=== PATIENT | female | born 2000 | race Caucasian/White ===

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

== ENCOUNTER 2022-05-03 16:43 | Emergency (ER) | payer OTHER, MEDICAID, SELFPAY ==
[2022-05-03 16:56] VITALS: BP 156/99; PULSE 109; RESP 20; TEMP 37.1; O2SAT 97; BMI 41.5
--- NOTE | 2022-05-03 17:02 | DI.RAD.S_ITS ---
PROCEDURE: XR KNEE LT 3V INDICATIONS: injury TECHNIQUE: Three views of the knee were acquired. COMPARISON: None. FINDINGS: Bones: There is subtle cortical irregularity along the medial aspect of the medial tibial plateau adjacent to the tibial spine. There is lateral patellar subluxation to a moderate degree. Soft tissues: Moderate suprapatellar joint effusion. No soft tissue abnormalities. IMPRESSION: 1. Lateral patellar subluxation. 2. Slight cortical irregularity adjacent to the tibial spines. 3. Moderate joint effusion implies further internal derangement. 4. Immobilization and MR imaging as an outpatient is recommended for full evaluation of injuries. Dictated by: Alysa Day M.D. on 05/03/2022 at 17:40 Approved by: Alysa Day M.D. on 05/03/2022 at 17:42
--- NOTE | 2022-05-03 19:25 | ED.LOWEXIN ---
HPI - Extremity Injury (Lower) <JACI Spangler - Last Filed: 05/03/22 20:30> General Chief Complaint: Extremity Injury, Lower Stated Complaint: lt knee injury Time Seen by Provider: 05/03/22 19:24 Source: patient and family Mode of arrival: Family Vehicle History of Present Illness HPI Narrative: 21-year-old female, nonsmoker, presents to emergency department with left knee pain. 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 Patient is in obvious discomfort. Patient is here with her mother. Related Data Allergies Allergy/AdvReac Type Severity Reaction Status Date / Time seasonal Allergy Mild sneezing, Uncoded 05/03/22 17:01 runny nose Review of Systems <JACI Spangler - Last Filed: 05/03/22 20:30> Review of Systems Narrative: Narrative: GENERAL: Denies chills, fatigue, fever, sweats. See HPI HEENT: Denies sinus pain, ear pain, sore throat, difficulty swallowing, dizziness. RESPIRATORY: Denies dyspnea, cough, wheezing, sputum. CARDIOVASCULAR: Denies chest pain, palpitations, edema. GASTROINTESTINAL: Denies nausea, vomiting, abdominal pain, diarrhea, constipation. : Denies dysuria, frequency, incontinence, hematuria, urinary retention, flank pain. MSK: Endorses left knee pain. SKIN: Denies rash, skin lesions, or pruritis. NEUROLOGIC: Denies weakness, dizziness, headache, numbness, confusion. PSYCHIATRIC: No concerning psychosocial issues. Patient History <JACI Spangler - Last Filed: 05/03/22 20:30> Social History Smoking Status: Never smoker Smoking Status: Never smoker alcohol intake frequency: 0-2 drinks per day Substance Use Type: does not use Exam <JACI Spangler - Last Filed: 05/03/22 20:30> Narrative Exam Narrative: Exam Narrative: GENERAL: This is a well-nourished, well-developed patient, in no acute distress HEAD: Atraumatic. Normocephalic. MSK: Moves all extremities. Left patella displaced laterally. Neurovascularly intact. NEURO: A&O x 3. SKIN: Warm, dry, no rashes or lesions noted. Initial Vital Signs Initial Vital Signs: Vital Signs Temperature 98.8 F 05/03/22 16:56 Pulse Rate 109 H 05/03/22 16:56 Respiratory Rate 20 05/03/22 16:56 Blood Pressure 156/99 H 05/03/22 16:56 Pulse Oximetry 97 05/03/22 16:56 Oxygen Delivery Method 05/03/22 16:56 Reviewed <Kareem Guido MD - Last Filed: 05/04/22 00:20> Initial Vital Signs Initial Vital Signs: Vital Signs Temperature 98.8 F 05/03/22 16:56 Pulse Rate 109 H 05/03/22 16:56 Respiratory Rate 20 05/03/22 16:56 Blood Pressure 156/99 H 05/03/22 16:56 Pulse Oximetry 97 05/03/22 16:56 Oxygen Delivery Method 05/03/22 16:56 Course <JACI Spangler - Last Filed: 05/03/22 20:30> Orders Ordered: ED Orders 05/03/22 17:02 XR knee LT 3V Stat 05/03/22 20:11 XR knee LT 3V Stat Discontinued Medications Hydromorphone HCl (Hydromorphone 1 Mg Inj) 1 mg IM NOW ONE Stop: 05/03/22 19:30 Last Admin: 05/03/22 19:51 Dose: 1 mg Documented By: MIKI Vital Signs Vital signs: Vital Signs - 8 hr 05/03/22 16:56 05/03/22 20:48 Temperature 98.8 F Pulse Rate 109 H 90 Respiratory Rate 20 12 Blood Pressure 156/99 H 124/78 Pulse Oximetry 97 98 Oxygen Delivery Method Room Air Room Air <Kareem Guido MD - Last Filed: 05/04/22 00:20> Orders Ordered: ED Orders 05/03/22 17:02 XR knee LT 3V Stat 05/03/22 20:11 XR knee LT 3V Stat Discontinued Medications Hydromorphone HCl (Hydromorphone 1 Mg Inj) 1 mg IM NOW ONE Stop: 05/03/22 19:30 Last Admin: 05/03/22 19:51 Dose: 1 mg Documented By: CRUZ Vital Signs Vital signs: Vital Signs - 8 hr 05/03/22 16:56 05/03/22 20:48 Temperature 98.8 F Pulse Rate 109 H 90 Respiratory Rate 20 12 Blood Pressure 156/99 H 124/78 Pulse Oximetry 97 98 Oxygen Delivery Method Room Air Room Air MDM - Extremity Injury (Lower) <JACI Spangler - Last Filed: 05/03/22 20:30> Differential Diagnosis Differential diagnosis: Likely other (Patellar dislocation) Imaging Data Extremity x-ray #1: Radiologist's Impression: [address] [id number] ReportSigned Patient: Herbie Valenzuela [facility]#: [id number]: 2001Acct:[id number]/Sex: 21 / FDate of Service: 05/03/22Loc: EDAccession Number: [id number] Procedure: XR knee LT 3V Ordering Provider: Maranda Lujan D.O. PROCEDURE: XR KNEE LT 3V INDICATIONS: injury TECHNIQUE: Three views of the knee were acquired. COMPARISON: None. FINDINGS: Bones: There is subtle cortical irregularity along the medial aspect of the medial tibial plateau adjacent to the tibial spine. There is lateral patellar subluxation to a moderate degree. Soft tissues: Moderate suprapatellar joint effusion. No soft tissue abnormalities. IMPRESSION: 1. Lateral patellar subluxation. 2. Slight cortical irregularity adjacent to the tibial spines. 3. Moderate joint effusion implies further internal derangement. 4. Immobilization and MR imaging as an outpatient is recommended for full evaluation of injuries. Dictated by: Alysa Day M.D. on 05/03/2022 at 17:40 Approved by: Alysa Day M.D. on 05/03/2022 at 17:42 [facility] Narrative Medical decision making narrative: 21-year-old female presents to the emergency department with left knee pain after injuring it earlier today. Patient was provided with IM Dilaudid. With the assistance Dr. Guido, patella was reduced. Patient tolerated procedure well. Post reduction x-ray shows patella in place. Patient placed in a knee immobilizer and crutches. Discussed plan of care and return precautions with patient, who was agreeable with course of action. <Kareem Guido MD - Last Filed: 05/04/22 00:20> [facility] Narrative Medical decision making narrative: 21-year-old female presents to the emergency department with left knee pain after injuring it earlier today. Patient was provided with IM Dilaudid. With the assistance Dr. Guido, patella was reduced. Traction counter traction with manipulation of the patella. Patient tolerated procedure well. Post reduction x-ray shows patella in place. Patient placed in a knee immobilizer and crutches. Discussed plan of care and return precautions with patient, who was agreeable with course of action. Discharge Plan Departure Patient Disposition: Home Clinical Impression: Acute knee pain Activity Restrictions/Additional Instructions: *You have been diagnosed with a left patellar dislocation. We were able to successfully reduce your left kneecap. We are placing you in a knee immobilizer and giving you crutches. I recommend that you use Tylenol or ibuprofen as needed for discomfort. Please follow-up with orthopedics tomorrow. *What to do: *Please continue to take your regular medications as directed. [ ] New medication prescriptions sent to your pharmacy: [ ] [ ] New medication written as a paper prescription [ x] No new medications given *Please follow up with your primary care provider in 2-3 days, call for an appointment. Let them know you were seen in the Emergency Department and that we ask that you be seen in follow up. We will electronically transmit a record of today's note if your PCP is in our system *If you do not have a primary care provider please contact the [facility] Resource line at [phone]. They will ask some questions about your medical history and help get you set up with a doctor in the community. ? Return to ER if you should have any new, worsening or concerning symptoms, such as worsening pain, severe headache, confusion, chest pain, difficulty breathing, fever greater than 101 F, shaking chills, persistent vomiting to the point that you cannot drink fluids, or other new or worsening symptoms. Referrals: Kofi Ramon MD [Physician] - Ryan Thompson MD [Primary Care Provider] - Visit Report Forms: Patient Portal/API <Kareem Guido MD - Last Filed: 05/04/22 00:20> [facility] Att[facility]: I personally evaluated and examined the patient and agree with the assessment, treatment plan, and disposition of the patient as recorded by the APC.
[2022-05-03] MEDS: HYDROMORPHONE 1 MG INJ IM (19:51)
--- NOTE | 2022-05-03 20:11 | DI.RAD.S_ITS ---
PROCEDURE: XR KNEE LT 3V INDICATIONS: post reduction x-ray TECHNIQUE: 3 views of the knee were acquired. COMPARISON: [facility], , XR KNEE LT 3V, 05/03/2022, 17:12. FINDINGS: Bones: There is mildly decreased but persistent moderate lateral shift and mild lateral tilt of the patella. There is a small curvilinear lucency within the tibial spine medially which may reflect a vascular channel or nondisplaced fracture. No suspicious bony lesions. Soft tissues: There is a moderate joint effusion. No suspicious soft tissue calcifications. IMPRESSION: 1. Interval decreased but persistent moderate lateral shift and mild lateral tilt of the patella. 2. Small curvilinear lucency within the tibial spine medially may reflect a vascular channel or nondisplaced fracture. 3. Moderate joint effusion. Dictated by: Chad Foy M.D. on 05/03/2022 at 20:52 Approved by: Chad Foy M.D. on 05/03/2022 at 20:54
--- NOTE | 2022-05-03 20:47 | PC.NURSE ---
discussed crutch training, declined crutches has them at home
[2022-05-03 20:48] VITALS: BP 124/78; PULSE 90; RESP 12; O2SAT 98
== END 2022-05-03 20:49 | disposition home or self-care (01) ==
PROVIDERS: Emergency Provider Registered Nurse; PCP Family Medicine
DX: M25.562 Pain in left knee (principal); X50.1XXA Overexertion from prolonged static or awkward postures, initial encounter
CPT/HCPCS: 73562; 96372; 99283; 99284; J1170

== ENCOUNTER → 2022-05-16 19:00 | Outpatient (CLI) | payer OTHER, MEDICAID, SELFPAY ==
--- NOTE | 2022-05-16 19:02 | DI.MRI.S_ITS ---
PROCEDURE: MR KNEE LT WO CON INDICATIONS: Lateral subluxation of left patella,initial encou TECHNIQUE: Noncontrast sagittal PD fast spin echo and T2 fast spin echo with fat saturation, sagittal 3-D FLASH with fat saturation; coronal T1 spin echo and PD fast spin echo with fat saturation, and axial PD fast spin echo with fat saturation through the knee. COMPARISON: [facility], CR, XR KNEE LT 3V, 05/03/2022, 20:10. FINDINGS: Image quality: Excellent. Menisci: There is no definite focal medial meniscal tear. Lateral meniscus is intact.. The meniscal root ligaments appear intact. Cruciate ligaments: The anterior and posterior cruciate ligaments appear intact. Medial structures: The medial collateral ligament appears intact. The posterior oblique ligament, semimembranosus tendon insertions, oblique popliteal ligament, and meniscocapsular junction appear intact. Visualized portions of the pes anserinus tendons appear normal. No abnormal bursal fluid. Lateral structures: The lateral collateral ligament, long and short heads of the biceps femoris tendon appear intact. The popliteus tendon appears normal; the popliteofibular ligament appears intact. Iliotibial band appears normal. Anterior structures: The quadriceps and patellar tendons appear intact. Lateral subluxation of patella is noted with attenuated appearance of medial patellar retinaculum at its insertion on medial patella. No femoral trochlear dysplasia or ventral trochlear prominence. Bones and cartilage: Significant marrow edema involving anterolateral periphery of femoral condyle and medial periphery of patella is seen. Low-grade chondromalacia involving medial facet of patella cartilage is also noted. The cartilage of the medial and lateral femorotibial compartments appears normal in thickness. Joint space: There is moderate amount of joint fluid. No Sheffield's cyst. Normal appearing synovial plicae are incidentally noted. No definite intra-articular loose body is noted. IMPRESSION: 1. Bony contusion involving anterolateral periphery of lateral femoral condyle and medial periphery of patella. 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 Suggestion of low to moderate grade partial-thickness tear involving medial patellar retinaculum with lateral subluxation of patella. Constellation of finding is consistent with reduced lateral patellar dislocation. 2. Cruciate ligaments are intact. 3. No evidence of focal meniscal tear. 4. Moderate joint effusion, no definite loose bodies. Dictated by: Evaristo Kapoor M.D. on 05/17/2022 at 8:40 Approved by: Evaristo Kapoor M.D. on 05/17/2022 at 9:26
== END ==
PROVIDERS: PCP Family Medicine; Referring Provider Internal Medicine; Visit Provider Internal Medicine
DX: S83.012A Lateral subluxation of left patella, initial encounter (principal); S80.02XA Contusion of left knee, initial encounter
CPT/HCPCS: 73721

== ENCOUNTER 2022-11-09 17:01 | Emergency (ER) | payer OTHER, MEDICAID, SELFPAY ==
[2022-11-09] VITALS (11 sets, daily range): BP systolic 133–215; BP diastolic 64–92; PULSE 90–114; RESP 16; TEMP 36.4; O2SAT 97–99; BMI 51.2
[2022-11-09 19:55] LABS: Bacteria Urine None Seen; Calcium Oxalate Crystals Urine Moderate; Culture Indicated Urine Cult Not Indicated; Pregnancy Test Urine Negative (Negative); RBC Urine 0-1/HPF (0-5/HPF); Squamous Epithelial Cell Urine 0-1 /HPF (0-5/HPF); WBC Urine 0-1/HPF (0-5/HPF)
[2022-11-09 20:31] LABS: Add Manual Diff / Slide Review NO; Basophils Absolute Auto 100 /uL (0-100); Basophils Percent Auto 1.2 % (0-2); Eosinophils Absolute Auto 300 /uL (0-450); Eosinophils Percent Auto 2.1 % (2-4); Hematocrit 37.4 % (36-46); Hemoglobin 12.2 g/dL (12.0-16.0); Lymphocytes Absolute Auto 3900 /uL (1100-4500); Lymphocytes Percent Auto 31.6 % (25-40); Mean Corpuscular HGB Conc 32.7 % (30-36); Mean Corpuscular Hemoglobin 25.5 PG (26-34); Mean Corpuscular Volume 78.1 fL (80-100); Monocytes Absolute Auto 800 /uL (0-900); Monocytes Percent Auto 6.6 % (3-14); Neutrophils Absolute Auto 7200 /uL (1500-7000); Neutrophils Percent Auto 58.5 % (50-75); Platelet Count 425 X10^3/uL (150-400); Red Blood Cell Count 4.79 X10^6/uL (4.0-5.2); White Blood Cell Count 12.3 X10^3/uL (4.5-11.0)
[2022-11-09 20:55] LABS: Alanine Aminotransferase 31 IU/L (<35); Albumin 4.6 g/dL (3.5-5.0); Albumin Globulin Ratio 1.5 (1.0-2.8); Alkaline Phosphatase 41 U/L (38-126); Aspartate Aminotransferase 23 IU/L (14-36); BUN Creatinine Ratio 11.5 (6-22); Bilirubin Total 0.4 mg/dL (0.2-1.3); Blood Urea Nitrogen 7 mg/dL (7-17); Calcium 9.3 mg/dL (8.4-10.2); Carbon Dioxide 25 mmol/L (22-32); Chloride 104 mmol/L (98-107); Estimated Glomerular Filt Rate > 60 mL/min (>60); Glucose 104 mg/dL (70-100); HEMOLYSIS < 15 (0-50); Potassium 3.7 mmol/L (3.4-5.1); Sodium 138 mmol/L (137-145); Total Protein 7.6 g/dL (6.3-8.2)
[2022-11-09 21:10] LABS: HCG Quantitative /Beta subunit < 2.4 mIU/mL
--- NOTE | 2022-11-09 21:16 | DI.US.S_ITS ---
PROCEDURE: US PELVIC COMPLETE INDICATIONS: HEAVY BLEEDING X 3 WEEKS. DEPO STARTED 3 MONTHS AGO. TECHNIQUE: Real-time scanning was performed of the pelvic organs, with image documentation. Additional endovaginal scanning was necessary due to incomplete visualization of the adnexal and endometrial structures by transabdominal scanning. COMPARISON: None. FINDINGS: Uterus: Uterus is anteverted and measures 6.8 x 4.3 x 3.8 cm. The endometrium measures up to 0.8 cm. There is a small amount of heterogeneous fluid within the endometrium. No internal vascularity within the endometrium on color Doppler interrogation. Ovaries: The right ovary measures 3.4 x 1.7 x 2.9 cm, with a calculated ovarian volume of 8.9 cc. The left ovary measures 2.9 x 1.8 x 2.4 cm, with a calculated ovarian volume of 6.4 cc. The ovaries have a normal sonographic appearance. Greater than 12 small follicles are demonstrated within each ovary. No adnexal masses. There is patent arterial and venous flow demonstrated in the ovaries. Other: There is a small amount of pelvic free fluid which appears within physiologic limits. IMPRESSION: 1. Small amount of nonspecific complex fluid within the endometrium is nonspecific and may reflect blood product. No discrete in the regional mass or abnormal vascularity demonstrated. 2. Multiple small bilateral ovarian follicles. The findings may reflect polycystic ovarian syndrome in the appropriate clinical context. We strive to produce accurate, complete, and clear reports of imaging services. To assist us in improving patient care, this report was composed using standard report templates and voice recognition software. Therefore, it may contain abnormal punctuation, insertions and/or omissions. Occasional wrong-word or sound-alike substitutions may occur. Though we review the report and make efforts to correct it, we do recommend that the report be read carefully in proper context to recognize any text inaccuracies. Dictated by: Chad Foy M.D. on 11/09/2022 at 23:08 Approved by: Chad Foy M.D. on 11/09/2022 at 23:11
--- NOTE | 2022-11-09 21:16 | ED_ITS ---
HPI - General Adult General Chief complaint: Urogenital-Female Stated complaint: Sent by , Period for 3 w, Heavy bleeding Time Seen by Provider: 11/09/22 19:38 Source: patient Mode of arrival: Ambulatory Limitations: no limitations History of Present Illness HPI narrative: Patient is a 21-year-old female approximately 3 months ago had a Depo shot. She states that 1st couple months she had very minimal bleeding however for the past 3 weeks she has had heavy bleeding and contractions. No urinary symptoms. No change in bowel habits. No fevers. She is having abdominal pain but is related to the uterine contractions. She states she is going through multiple pads a day. She is also passing large clots. She is been told in the past that she was anemic and when she contacted her primary doctor she was sent to the emergency department for further evaluation. Related Data Allergies Allergy/AdvReac Type Severity Reaction Status Date / Time seasonal Allergy Mild sneezing, Uncoded 05/03/22 17:01 runny nose Review of Systems Constitutional Constitutional: Reports system reviewed and no additional complaints, except as documented Gastrointestinal Gastrointestinal: Reports system reviewed and no additional complaints, except as documented Genitourinary Genitourinary: Reports system reviewed and no additional complaints, except as documented Integumentary/Breasts Skin/Breast: Reports system reviewed and no additional complaints, except as documented Patient History Social History Smoking Status: Never smoker Smoking Status: Never smoker alcohol intake frequency: 0-2 drinks per day Substance Use Type: does not use Exam Initial Vital Signs Initial Vital Signs: Vital Signs Temperature 97.6 F 11/09/22 17:04 Pulse Rate 104 H 11/09/22 17:04 Respiratory Rate 16 11/09/22 17:04 Blood Pressure 137/88 11/09/22 17:04 Pulse Oximetry 97 11/09/22 17:04 Oxygen Delivery Method 11/09/22 17:04 HENMT Head: normal to inspection and normocephalic Resp Effort & Inspection: normal respiratory effort Cardio Rate: regular rate GI Inspection: normal to inspection Skin General: no rashes or lesions noted Neuro General: patient alert and patient awake Course Orders Ordered: ED Orders 11/09/22 17:09 Test Urine Stat Urine Microscopic Stat 11/09/22 20:16 CBC Auto Diff [Complete Blood Count AUTO DIFF] Stat CMP [Comprehensive Metabolic Panel] Stat HCG Quantitative /Beta subunit Stat Type and Screen Stat 11/09/22 21:16 US pelvic complete Stat Vital Signs Vital signs: Vital Signs - 8 hr 11/09/22 17:04 11/09/22 20:09 11/09/22 20:09 Temperature 97.6 F Pulse Rate 104 H 93 H Respiratory Rate 16 Blood Pressure 137/88 133/91 H Pulse Oximetry 97 97 Oxygen Delivery Method Room Air 11/09/22 20:23 11/09/22 20:23 11/09/22 20:30 Temperature Pulse Rate 95 H 97 H Respiratory Rate Blood Pressure 136/85 Pulse Oximetry 98 98 Oxygen Delivery Method 11/09/22 20:31 11/09/22 20:31 11/09/22 21:00 Temperature Pulse Rate 103 H Respiratory Rate Blood Pressure 142/64 H 143/65 H Pulse Oximetry 99 Oxygen Delivery Method 11/09/22 21:00 11/09/22 21:30 11/09/22 21:30 Temperature Pulse Rate 90 95 H Respiratory Rate Blood Pressure 157/70 H Pulse Oximetry 99 98 Oxygen Delivery Method 11/09/22 22:00 11/09/22 22:01 11/09/22 22:01 Temperature Pulse Rate 114 H 108 H Respiratory Rate Blood Pressure 215/92 H Pulse Oximetry 98 98 Oxygen Delivery Method 11/09/22 23:44 11/09/22 23:45 11/09/22 23:45 Temperature Pulse Rate 106 H 106 H Respiratory Rate Blood Pressure 141/74 H Pulse Oximetry 98 97 Oxygen Delivery Method Medical Decision Making Lab Data Lab results reviewed: Yes I reviewed the patient's lab results. 11/09/22 20:16 11/09/22 20:16 Labs: Lab Results 11/09/22 11/09/22 11/09/22 Range/Units 17:09 17:09 20:16 WBC 12.3 H (4.5-11.0) X10^3/uL RBC 4.79 (4.0-5.2) X10^6/uL Hgb 12.2 (12.0-16.0) g/dL Hct 37.4 (36-46) % MCV 78.1 L (80-100) fL MCH 25.5 L (26-34) PG MCHC 32.7 (30-36) % RDW 16.0 H (11.6-14.8) % Plt Count 425 H (150-400) X10^3/uL Neut % (Auto) 58.5 (50-75) % Lymph % (Auto) 31.6 (25-40) % [place] % (Auto) 6.6 (3-14) % Eos % (Auto) 2.1 (2-4) % Baso % (Auto) 1.2 (0-2) % Neut # (Auto) 7200 H (0445-6402) /uL Lymph # (Auto) 3900 (0243-1505) /uL [place] # (Auto) 800 (0-900) /uL Eos # (Auto) 300 (0-450) /uL Baso # (Auto) 100 (0-100) /uL Sodium (137-145) mmol/L Potassium (3.4-5.1) mmol/L Chloride (98-107) mmol/L Carbon Dioxide (22-32) mmol/L BUN (7-17) mg/dL Creatinine (0.52-1.04) mg/dL Estimated GFR (>60) mL/min BUN/Creatinine Ratio (6-22) Glucose (70-100) mg/dL Calcium (8.4-10.2) mg/dL Total Bilirubin (0.2-1.3) mg/dL AST (14-36) IU/L ALT (<35) IU/L Alkaline Phosphatase (38-126) U/L Total Protein (6.3-8.2) g/dL Albumin (3.5-5.0) g/dL Globulin (1.7-4.1) g/dL Albumin/Globulin Ratio (1.0-2.8) HCG, Quant mIU/mL Urine RBC 0-1/hpf (0-5/HPF) Urine WBC 0-1/hpf (0-5/HPF) Ur Squamous Epith Cells 0-1 /hpf (0-5/HPF) Calcium Oxalate Crystal Moderate H Urine Bacteria None seen (None) Ur Culture Indicated? Cult not indicated Urine Test Negative (Negative) Blood Type Antibody Screen 11/09/22 11/09/22 Range/Units 20:16 20:16 WBC (4.5-11.0) X10^3/uL RBC (4.0-5.2) X10^6/uL Hgb (12.0-16.0) g/dL Hct (36-46) % MCV (80-100) fL MCH (26-34) PG MCHC (30-36) % RDW (11.6-14.8) % Plt Count (150-400) X10^3/uL Neut % (Auto) (50-75) % Lymph % (Auto) (25-40) % [place] % (Auto) (3-14) % Eos % (Auto) (2-4) % Baso % (Auto) (0-2) % Neut # (Auto) (7643-1233) /uL Lymph # (Auto) (3551-8415) /uL [place] # (Auto) (0-900) /uL Eos # (Auto) (0-450) /uL Baso # (Auto) (0-100) /uL Sodium 138 (137-145) mmol/L Potassium 3.7 (3.4-5.1) mmol/L Chloride 104 (98-107) mmol/L Carbon Dioxide 25 (22-32) mmol/L BUN 7 (7-17) mg/dL Creatinine 0.61 (0.52-1.04) mg/dL Estimated GFR > 60 (>60) mL/min BUN/Creatinine Ratio 11.5 (6-22) Glucose 104 H (70-100) mg/dL Calcium 9.3 (8.4-10.2) mg/dL Total Bilirubin 0.4 (0.2-1.3) mg/dL AST 23 (14-36) IU/L ALT 31 (<35) IU/L Alkaline Phosphatase 41 (38-126) U/L Total Protein 7.6 (6.3-8.2) g/dL Albumin 4.6 (3.5-5.0) g/dL Globulin 3.0 (1.7-4.1) g/dL Albumin/Globulin Ratio 1.5 (1.0-2.8) HCG, Quant < 2.4 mIU/mL Urine RBC (0-5/HPF) Urine WBC (0-5/HPF) Ur Squamous Epith Cells (0-5/HPF) Calcium Oxalate Crystal Urine Bacteria (None) Ur Culture Indicated? Urine Test (Negative) Blood Type O Positive Antibody Screen Negative Point of Care Testing Test Results Negative Urine Dip Bedside Urine Glucose Negative Bedside Urine Bilirubin - Negative Bedside Urine Ketone - Negative Urine Specific [place] 1.025 Bedside Urine Occult Blood +++ Bedside Urine pH 6 Bedside Urine Protein - Negative Bedside Urine Urobilinogen - Negative Bedside Urine Nitrite - Negative Bedside Urine Leukocytes - Negative Esterase Point of care testing: Point of Care Testing Test Results Negative Urine Dip Bedside Urine Glucose Negative Bedside Urine Bilirubin - Negative Bedside Urine Ketone - Negative Urine Specific [place] 1.025 Bedside Urine Occult Blood +++ Bedside Urine pH 6 Bedside Urine Protein - Negative Bedside Urine Urobilinogen - Negative Bedside Urine Nitrite - Negative Bedside Urine Leukocytes - Negative Esterase Imaging Data US - LABOR RELATIONS REPRESENTATIVE: Radiologist's Impression: PROCEDURE:? US PELVIC COMPLETE ? INDICATIONS:? HEAVY BLEEDING X 3 WEEKS. DEPO STARTED 3 MONTHS AGO. ? TECHNIQUE:? Real-time scanning was performed of the pelvic organs, with image documentation.? Additional endovaginal scanning was necessary due to incomplete visualization of the adnexal and endometrial structures by transabdominal scanning.? ? COMPARISON:? None. ? FINDINGS:? ?? Uterus:? Uterus is anteverted and measures 6.8 x 4.3 x 3.8 cm.? The endometrium measures up to 0.8 cm.? There is a small amount of heterogeneous fluid within the endometrium.? No internal vascularity within the endometrium on color Doppler interrogation. ? Ovaries:? The right ovary measures 3.4 x 1.7 x 2.9 cm, with a calculated ovarian volume of 8.9 cc. The left ovary measures 2.9 x 1.8 x 2.4 cm, with a calculated ovarian volume of 6.4 cc. The ovaries have a normal sonographic appearance.? Greater than 12 small follicles are demonstrated within each ovary.? No adnexal masses.? There is patent arterial and venous flow demonstrated in the ovaries.? ? Other:? There is a small amount of pelvic free fluid which appears within physiologic limits. ? ? IMPRESSION:? ? 1. Small amount of nonspecific complex fluid within the endometrium is nonspecific and may reflect blood product.? No discrete in the regional mass or abnormal vascularity demonstrated. ? 2. Multiple small bilateral ovarian follicles.? The findings may reflect polycystic ovarian syndrome in the appropriate clinical context.? ? ? We strive to produce accurate, complete, and clear reports of imaging services. To assist us in improving patient care, this report was composed using standard report templates and voice recognition software. Therefore, it may contain abnormal punctuation, insertions and/or omissions. Occasional wrong-word or sound-alike substitutions may occur. Though we review the report and make efforts to correct it, we do recommend that the report be read carefully in proper context to recognize any text inaccuracies. MDM Narrative Medical decision making narrative: Patient is not anemic. Vital signs unremarkable. Ultrasound shows no acute pathology. Ultrasound could potentially be consistent with PCOS over the patient does not carry this diagnosis. Had a discussion with her regarding her options to include starting her on a control pill or waiting until she talks with her primary doctor about either Re administering the Depo shot or switching to a new hormone regulating medication. After this discussion the patient opted to wait until she sees her primary doctor. There is no indication for further radiologic studies to include a CT scan. She was given return pre cautions. She expressed understanding and agreement. Discharge Plan Departure Patient Disposition: Home Clinical Impression: Abnormal vaginal bleeding Instructions: DI for Vaginal Bleeding Activity Restrictions/Additional Instructions: I do recommend that you contact your primary doctor tomorrow for a follow-up to discuss potential treatment options for your vaginal bleeding. Return to the emergency department for new or worsening symptoms. Referrals: Ryan Thompson MD [Primary Care Provider] - Stand Alone Forms: Patient Portal/API
== END 2022-11-09 23:56 | disposition home or self-care (01) ==
PROVIDERS: Emergency Medicine; Nurse Practitioner Critical Care Medicine; Emergency Provider Emergency Medicine; PCP Family Medicine
DX: N93.9 Abnormal uterine and vaginal bleeding, unspecified (principal)
CPT/HCPCS: 36415; 76830; 76856; 80053; 81003; 81015; 81025; 84702; 85025; 86850; 86900; 86901; 93975; 99283; 99284

== ENCOUNTER → 2022-12-11 20:28 | Outpatient (ROUT) | payer OTHER, MEDICAID, SELFPAY ==
[2022-12-13 02:38] LABS: x Labcorp Estim. Avg Glu (eAG) 108 mg/dL (.); x Labcorp Hemoglobin A1c 5.4 % (4.8-5.6)
== END ==
PROVIDERS: PCP Family Medicine; Visit Provider Family Medicine
DX: F32.2 Major depressive disorder, single episode, severe without psychotic features (principal)
CPT/HCPCS: 36415; 83036

== ENCOUNTER 2023-02-06 19:04 | Emergency (ER) | payer OTHER, MEDICAID, SELFPAY ==
[2023-02-06 19:36] VITALS: BP 176/94; PULSE 84; RESP 16; TEMP 36.6; O2SAT 99; BMI 48.2
[2023-02-06 20:12] LABS: Alanine Aminotransferase 33 IU/L (<35); Albumin 4.7 g/dL (3.5-5.0); Albumin Globulin Ratio 1.4 (1.0-2.8); Alkaline Phosphatase 46 U/L (38-126); Aspartate Aminotransferase 22 IU/L (14-36); BUN Creatinine Ratio 13.8 (6-22); Bilirubin Total 0.4 mg/dL (0.2-1.3); Blood Urea Nitrogen 9 mg/dL (7-17); Calcium 9.1 mg/dL (8.4-10.2); Carbon Dioxide 25 mmol/L (22-32); Chloride 106 mmol/L (98-107); Estimated Glomerular Filt Rate > 60 mL/min (>60); Globulin 3.3 g/dL (1.7-4.1); Glucose 101 mg/dL (70-100); HEMOLYSIS < 15 (0-50); Lipase 85 U/L (23-300); Potassium 3.9 mmol/L (3.4-5.1); Sodium 140 mmol/L (137-145)
[2023-02-06 20:38] LABS: Add Manual Diff / Slide Review NO; Basophils Absolute Auto 100 /uL (0-100); Basophils Percent Auto 1.1 % (0-2); Eosinophils Absolute Auto 200 /uL (0-450); Eosinophils Percent Auto 1.9 % (2-4); Hematocrit 38.6 % (36-46); Hemoglobin 13.1 g/dL (12.0-16.0); Lymphocytes Absolute Auto 3900 /uL (1100-4500); Lymphocytes Percent Auto 31.2 % (25-40); Mean Corpuscular HGB Conc 33.8 % (30-36); Mean Corpuscular Volume 79.8 fL (80-100); Monocytes Absolute Auto 700 /uL (0-900); Monocytes Percent Auto 5.9 % (3-14); Neutrophils Absolute Auto 7500 /uL (1500-7000); Neutrophils Percent Auto 59.9 % (50-75); Platelet Count 410 X10^3/uL (150-400); Red Blood Cell Count 4.84 X10^6/uL (4.0-5.2); Red Cell Distribution Width 14.9 % (11.6-14.8); White Blood Cell Count 12.4 X10^3/uL (4.5-11.0)
--- NOTE | 2023-02-06 21:37 | DI.CT.S_ITS ---
PROCEDURE: CT ABDOMEN PELVIS W CON INDICATIONS: LLQ abd pain TECHNIQUE: After the administration of IV contrast, axial sections were acquired from the lung bases to the pubic symphysis. Coronal and sagittal reformats were performed. For radiation dose reduction, the following was used: automated exposure control, adjustment of mA and/or kV according to patient size. COMPARISON: None. FINDINGS: Image quality: Excellent. Lung bases: Unremarkable. Heart: Heart is normal in size. ABDOMEN: Liver: No mass lesion. Gallbladder: Within normal limits without calcified gallstones. Biliary ducts: No biliary ductal dilatation. Pancreas: Unremarkable. Spleen: Normal in size. Adrenal Glands: No adrenal nodules. Kidneys and Ureters: No hydronephrosis. Stomach and Bowel: Stomach, small bowel loops, and colon are normal in caliber and wall thickness. The appendix is normal. Peritoneum: No abnormal intraperitoneal fluid. No free air. Ventral Wall: No hernia. Abdominal Nodes: No retroperitoneal or mesenteric adenopathy by size criteria. Vessels: Aorta and inferior vena cava are normal in size. PELVIS: Pelvic Organs: The uterus and ovaries appear within normal size limits. No adnexal masses. Bladder: Unremarkable. Pelvic Nodes: No enlarged lymph nodes. Miscellaneous: No inguinal hernias are seen. Bones: Visualized osseous structures demonstrate no suspicious focal lesions. IMPRESSION: 1. No acute intra-abdominal abnormality. Dictated by: Chad Foy M.D. on 02/06/2023 at 23:01 Approved by: Chad Foy M.D. on 02/06/2023 at 23:02
--- NOTE | 2023-02-06 21:38 | ED.GENADULT ---
HPI - General Adult General Chief complaint: Abdominal Pain Stated complaint: LT AB PAIN,throwing up, diarrhea x14 Time Seen by Provider: 02/06/23 19:47 Source: patient Mode of arrival: Ambulatory History of Present Illness HPI narrative: 22-year-old female who is here for evaluation of left-sided abdominal pain that started within the past couple days but she is also had intermittent vomiting and consistent diarrhea for the past 2 weeks. No urinary symptoms. No prior abdominal surgeries. Has tried occasional Imodium at home for the diarrhea without any improvement. She came into the emergency department today because she is having the abdominal pain in addition to the diarrhea. Related Data Home Medications Medication Instructions Recorded Confirmed buspirone 7.5 mg tablet 7.5 mg PO BID 01/22/23 02/06/23 escitalopram oxalate 10 mg tablet 10 mg PO DAILY 01/22/23 02/06/23 medroxyprogesterone 150 mg/mL 150 mg IM [id number] 01/22/23 02/06/23 intramuscular suspension (Depo-Provera) metformin 500 mg tablet 500 mg PO DAILY 01/22/23 02/06/23 Previous Rx's Medication Instructions Recorded ondansetron 4 mg disintegrating 4 mg PO Q6H PRN nausea and 02/06/23 tablet vomiting #10 tabs Allergies Allergy/AdvReac Type Severity Reaction Status Date / Time seasonal Allergy Mild sneezing, Uncoded 02/06/23 19:38 runny nose Review of Systems Review of Systems ROS Unobtainable: All systems reviewed & are unremarkable except as noted in HPI and below Patient History Medical History Anemia (~2021) Anxiety (~2020) Depression (~2020) Menorrhagia with irregular cycle (~2019) Morbid obesity with BMI of 45.0-49.9, adult Painful menstrual periods (~2019) PTSD (post-traumatic stress disorder) (~2019) Surgical History (Updated 02/03/23 @ 20:42 by Mary Sheppard) Anesthesia History of tonsillectomy (~2006) Family History (Updated 02/03/23 @ 20:44 by Mary Sheppard) Father Accident Grandfather History of heart disease Hyperlipidemia Hypertension Stroke Grandmother History of heart disease Hypertension Stroke Grandmother Diabetes mellitus History of heart disease Hypertension Stroke Social History Smoking Status: Never smoker Smoking Status: Never smoker alcohol intake frequency: 0-2 drinks per day Substance Use Type: marijuana Exam Initial Vital Signs Initial Vital Signs: Vital Signs Temperature 97.9 F 02/06/23 19:36 Pulse Rate 84 02/06/23 19:36 Respiratory Rate 16 02/06/23 19:36 Blood Pressure 176/94 H 02/06/23 19:36 Pulse Oximetry 99 02/06/23 19:36 Oxygen Delivery Method Room Air 02/06/23 19:36 HENMS Head: normal to inspection and normocephalic GI Inspection: normal to inspection Palpation: soft, No firm and tender (Left-sided abdomen) Skin General: no rashes or lesions noted Neuro General: patient alert, patient awake and patient oriented x3 Extrem General: normal to inspection and capillary refill normal Course Orders Ordered: ED Orders 02/06/23 19:39 EKG-12 Lead Stat 02/06/23 19:52 Complete Blood Count AUTO DIFF Stat Comprehensive Metabolic Panel Stat Lipase Stat 02/06/23 21:35 Urine Culture Stat Urine Microscopic Stat 02/06/23 21:37 CT abdomen pelvis w con Stat Discontinued Medications Ondansetron HCl (Ondansetron 4 Mg Odt) 4 mg PO NOW PRN PRN Reason: Nausea And Vomiting Ondansetron HCl (Ondansetron 4 Mg/2 Ml Inj) 4 mg IV NOW PRN PRN Reason: Nausea And Vomiting Vital Signs Vital signs: Vital Signs - 8 hr 02/06/23 19:36 02/06/23 21:49 02/06/23 23:36 Temperature 97.9 F Pulse Rate 84 87 97 H Respiratory Rate 16 16 18 Blood Pressure 176/94 H 131/72 124/77 Pulse Oximetry 99 99 97 Oxygen Delivery Method Room Air Room Air Room Air Medical Decision Making Lab Data Lab results reviewed: Yes I reviewed the patient's lab results. 02/06/23 19:52 02/06/23 19:52 Labs: Lab Results 02/06/23 02/06/23 02/06/23 Range/Units 19:52 19:52 21:35 WBC 12.4 H (4.5-11.0) X10^3/uL RBC 4.84 (4.0-5.2) X10^6/uL Hgb 13.1 (12.0-16.0) g/dL Hct 38.6 (36-46) % MCV 79.8 L (80-100) fL MCH 27.0 (26-34) PG MCHC 33.8 (30-36) % RDW 14.9 H (11.6-14.8) % Plt Count 410 H (150-400) X10^3/uL Neut % (Auto) 59.9 (50-75) % Lymph % (Auto) 31.2 (25-40) % [place] % (Auto) 5.9 (3-14) % Eos % (Auto) 1.9 L (2-4) % Baso % (Auto) 1.1 (0-2) % Neut # (Auto) 7500 H (0650-9432) /uL Lymph # (Auto) 3900 (5139-5427) /uL [place] # (Auto) 700 (0-900) /uL Eos # (Auto) 200 (0-450) /uL Baso # (Auto) 100 (0-100) /uL Sodium 140 (137-145) mmol/L Potassium 3.9 (3.4-5.1) mmol/L Chloride 106 (98-107) mmol/L Carbon Dioxide 25 (22-32) mmol/L BUN 9 (7-17) mg/dL Creatinine 0.65 (0.52-1.04) mg/dL Estimated GFR > 60 (>60) mL/min BUN/Creatinine Ratio 13.8 (6-22) Glucose 101 H (70-100) mg/dL Calcium 9.1 (8.4-10.2) mg/dL Total Bilirubin 0.4 (0.2-1.3) mg/dL AST 22 (14-36) IU/L ALT 33 (<35) IU/L Alkaline Phosphatase 46 (38-126) U/L Total Protein 8.0 (6.3-8.2) g/dL Albumin 4.7 (3.5-5.0) g/dL Globulin 3.3 (1.7-4.1) g/dL Albumin/Globulin Ratio 1.4 (1.0-2.8) Lipase 85 (23-300) U/L Urine RBC 1-5/hpf (0-5/HPF) Urine WBC 10-30/hpf H (0-5/HPF) Ur Squamous Epith Cells 1-5 /hpf (0-5/HPF) Urine Bacteria Few (2-10) H (None) Ur Culture Indicated? Specimen cultured Point of Care Testing Test Results Negative Urine Dip Bedside Urine Glucose Negative Bedside Urine Bilirubin - Negative Bedside Urine Ketone - Negative Urine Specific [place] 1.030 Bedside Urine Occult Blood +++ Bedside Urine pH 6.0 Bedside Urine Protein +/- 15 Bedside Urine Urobilinogen - Negative Bedside Urine Nitrite - Negative Bedside Urine Leukocytes +/- 15 Esterase Point of care testing: Point of Care Testing Test Results Negative Urine Dip Bedside Urine Glucose Negative Bedside Urine Bilirubin - Negative Bedside Urine Ketone - Negative Urine Specific [place] 1.030 Bedside Urine Occult Blood +++ Bedside Urine pH 6.0 Bedside Urine Protein +/- 15 Bedside Urine Urobilinogen - Negative Bedside Urine Nitrite - Negative Bedside Urine Leukocytes +/- [address] scan - abdomen/pelvis: Radiologist's Impression: PROCEDURE:? CT ABDOMEN PELVIS W CON ? INDICATIONS:? LLQ abd pain ? TECHNIQUE:? After the administration of IV contrast, axial sections were acquired from the lung bases to the pubic symphysis.? Coronal and sagittal reformats were performed.? For radiation dose reduction, the following was used:? automated exposure control, adjustment of mA and/or kV according to patient size. ? COMPARISON:? None. ? FINDINGS:? Image quality:? Excellent.? ? Lung bases:? Unremarkable.? ? Heart:? Heart is normal in size. ? ? ABDOMEN: Liver:? No mass lesion. Gallbladder:? Within normal limits without calcified gallstones.? ? Biliary ducts:? No biliary ductal dilatation.? ? Pancreas:? Unremarkable.? ? Spleen:? Normal in size.? ? Adrenal Glands:? No adrenal nodules.? ? Kidneys and Ureters:? No hydronephrosis.? ? ? Stomach and Bowel:? Stomach, small bowel loops, and colon are normal in caliber and wall thickness.? The appendix is normal. Peritoneum:? No abnormal intraperitoneal fluid.? No free air.? ? Ventral Wall: ? No hernia.? Abdominal Nodes:? No retroperitoneal or mesenteric adenopathy by size criteria.? Vessels:? Aorta and inferior vena cava are normal in size.? ? PELVIS: Pelvic Organs:? The uterus and ovaries appear within normal size limits.? No adnexal masses.? ? Bladder:? Unremarkable.? ? Pelvic Nodes: No enlarged lymph nodes.? Miscellaneous: No inguinal hernias are seen. ? ? ? Bones:? Visualized osseous structures demonstrate no suspicious focal lesions. ? IMPRESSION:? ? 1. No acute intra-abdominal abnormality.? MDM Narrative Medical decision making narrative: CT scan today shows no acute pathology. No indication for antibiotics. She is had diarrhea for the past 14 days. Did not provide us a stool sample here in the emergency department. We did discuss the use of Imodium at home. She is only been taking it sporadically. Advised that she take it more often. No indication for further workup or admission to the hospital here in the ER. She was advised that to contact her primary care doctor for follow-up. She expressed understanding and agreement. Discharge Plan Departure Patient Disposition: Home Clinical Impression: Nausea and vomiting, Abdominal pain, Diarrhea Instructions: Diarrhea Activity Restrictions/Additional Instructions: I do recommend that you start using the Imodium/loperamide like we discussed. I also recommend that contact your primary doctor for a follow-up. Return to the emergency department for new or worsening symptoms. Prescriptions: New ondansetron 4 mg tablet,disintegrating 4 mg PO Q6H PRN (Reason: nausea and vomiting) Qty: 10 0RF No Action medroxyprogesterone [Depo-Provera] 150 mg/mL suspension 150 mg IM [id number] buspirone 7.5 mg tablet 7.5 mg PO BID escitalopram oxalate 10 mg tablet 10 mg PO DAILY metformin 500 mg tablet 500 mg PO DAILY Referrals: Ryan Thompson MD [Primary Care Provider] - Stand Alone Forms: Patient Portal/API
[2023-02-06 21:49] VITALS: BP 131/72; PULSE 87; RESP 16; O2SAT 99
[2023-02-06 23:05] LABS: Bacteria Urine Few (2-10); Culture Indicated Urine Specimen Cultured; RBC Urine 1-5/HPF (0-5/HPF); Squamous Epithelial Cell Urine 1-5 /HPF (0-5/HPF); WBC Urine 10-30/HPF (0-5/HPF)
[2023-02-06 23:36] VITALS: BP 124/77; PULSE 97; RESP 18; O2SAT 97
== END 2023-02-06 23:37 | disposition home or self-care (01) ==
PROVIDERS: Emergency Provider Emergency Medicine; PCP Family Medicine
DX: R10.9 Unspecified abdominal pain (principal); R11.2 Nausea with vomiting, unspecified; R19.7 Diarrhea, unspecified
CPT/HCPCS: 36415; 74177; 80053; 81003; 81015; 81025; 83690; 85025; 85240; 85246; 85730; 87086; 99284; Q9967

== ENCOUNTER 2023-08-15 19:03 | Emergency (ER) | payer OTHER, MEDICAID, SELFPAY ==
[2023-08-15 19:11] VITALS: BP 162/90; PULSE 73; RESP 16; TEMP 36.9; O2SAT 100; BMI 49.4
--- NOTE | 2023-08-15 19:22 | ED_ITS ---
HPI - Recheck/Abnormal Lab/Rx General Chief Complaint: Recheck/Abnormal Lab/Rx Stated Complaint: sent for US, IUD causing pain Time Seen by Provider: 08/15/23 19:17 Source: patient Mode of arrival: Ambulatory History of Present Illness HPI narrative: Young woman arrives via private vehicle today because of increased pelvic pain and vaginal bleeding after IUD placement earlier this morning. She has von Willebrand's disease and has had perpetual vaginal bleeding now for about 6 months. She had her Nexplanon removed yesterday and the IUD placed today in the hopes that this would improve her bleeding. However pain has been quite significant. She reports a fever to 102 at home and has subsequently taken ibuprofen and Tylenol and herTemperature is better. Her abdominal pain is quite uncomfortable. She was instructed to come to the ED for confirmation of placement and assessment. Related Data Home Medications Medication Instructions Recorded Confirmed buspirone 7.5 mg tablet 7.5 mg PO BID 01/22/23 02/06/23 escitalopram oxalate 10 mg tablet 10 mg PO DAILY 01/22/23 02/06/23 medroxyprogesterone 150 mg/mL 150 mg IM [id number] 01/22/23 02/06/23 intramuscular suspension (Depo-Provera) metformin 500 mg tablet 500 mg PO DAILY 01/22/23 02/06/23 Previous Rx's Medication Instructions Recorded ondansetron 4 mg disintegrating 4 mg PO Q6H PRN nausea and 02/06/23 tablet vomiting #10 tabs Allergies Allergy/AdvReac Type Severity Reaction Status Date / Time seasonal Allergy Mild sneezing, Uncoded 08/15/23 19:18 runny nose Patient History Medical History Anemia (~2021) Anxiety (~2020) Depression (~2020) Menorrhagia with irregular cycle (~2019) Morbid obesity with BMI of 45.0-49.9, adult Painful menstrual periods (~2019) PTSD (post-traumatic stress disorder) (~2019) Surgical History (Updated 02/03/23 @ 20:42 by Mary Sheppard) Anesthesia History of tonsillectomy (~2006) Family History (Updated 02/03/23 @ 20:44 by Mary Sheppard) Father Accident Grandfather History of heart disease Hyperlipidemia Hypertension Stroke Grandmother History of heart disease Hypertension Stroke Grandmother Diabetes mellitus History of heart disease Hypertension Stroke Social History Smoking Status: Never smoker Smoking Status: Never smoker alcohol intake frequency: 0-2 drinks per day Substance Use Type: marijuana Exam Narrative Exam Narrative: GENERAL: Alert, cooperative and in no distress. HEAD: Atraumatic. Normocephalic. EYES: Sclera are clear without icterus. Extraocular movements are full. ENT: No rhinorrhea NECK: No visible abnormality RESPIRATORY: No respiratory distress GASTROINTESTINAL: Nondistended, mild lower tenderness without guarding or mass. EXTREMITIES: No obvious trauma. NEURO: Nonfocal, normal speech SKIN: No rash or erythema of visible areas PSYCH: Normally oriented. Normal range of affect. Appropriate behavior Initial Vital Signs Initial Vital Signs: Vital Signs Temperature 98.4 F 08/15/23 19:11 Pulse Rate 73 08/15/23 19:11 Respiratory Rate 16 08/15/23 19:11 Blood Pressure 162/90 H 08/15/23 19:11 Pulse Oximetry 100 08/15/23 19:11 Oxygen Delivery Method Room Air 08/15/23 19:11 Course Orders Ordered: ED Orders 08/15/23 19:24 US pelvic complete Stat 08/15/23 19:40 CBC Auto Diff [Complete Blood Count AUTO DIFF] Stat Vital Signs Vital signs: Vital Signs - 8 hr 08/15/23 19:11 08/15/23 21:00 Temperature 98.4 F Pulse Rate 73 82 Respiratory Rate 16 18 Blood Pressure 162/90 H 176/95 H Pulse Oximetry 100 100 Oxygen Delivery Method Room Air Room Air MDM - Recheck/Abnormal Lab/Rx Lab Data 08/15/23 19:40 Labs: Lab Results 08/15/23 Range/Units 19:40 WBC 10.7 (4.5-11.0) X10^3/uL RBC 4.78 (4.0-5.2) X10^6/uL Hgb 13.3 (12.0-16.0) g/dL Hct 38.9 (36-46) % MCV 81.4 (80-100) fL MCH 27.7 (26-34) PG MCHC 34.1 (30-36) % RDW 15.0 H (11.6-14.8) % Plt Count 381 (150-400) X10^3/uL Neut % (Auto) 62.8 (50-75) % Lymph % (Auto) 29.7 (25-40) % [place] % (Auto) 4.9 (3-14) % Eos % (Auto) 1.7 L (2-4) % Baso % (Auto) 0.9 (0-2) % Neut # (Auto) 6700 (9540-8188) /uL Lymph # (Auto) 3200 (2726-7766) /uL [place] # (Auto) 500 (0-900) /uL Eos # (Auto) 200 (0-450) /uL Baso # (Auto) 100 (0-100) /uL MDM Narrative Medical decision making narrative: Patient looks well. Nontoxic. No fever. No tachycardia. Benign ultrasound, benign white count. I think watchful waiting is safe and appropriate at this point. Doubt uterine perforation. Discharge Plan Departure Patient Disposition: Home Clinical Impression: Pelvic pain, Abnormal uterine bleeding Activity Restrictions/Additional Instructions: fortunately no dangerous condition is identified after physical examination, ultrasonography and blood testing. I think it is safe at this point to let the clock run for a fewDays to see if things will settle down. I recommend Tylenol 1000 mg taken every 6 hours and ibuprofen 800 mg taken every 8 hours. Follow-up with your doctor tomorrow or the next day to check in about how you are feeling. You should return to the ED for worsening pain, persistent high fever, repeated vomiting or other severe symptoms. Prescriptions: No Action medroxyprogesterone [Depo-Provera] 150 mg/mL suspension 150 mg IM [id number] buspirone 7.5 mg tablet 7.5 mg PO BID escitalopram oxalate 10 mg tablet 10 mg PO DAILY metformin 500 mg tablet 500 mg PO DAILY ondansetron 4 mg tablet,disintegrating 4 mg PO Q6H PRN (Reason: nausea and vomiting) Qty: 10 0RF Referrals: Ryan Thompson MD [Primary Care Provider] - Stand Alone Forms: Patient Portal/API
--- NOTE | 2023-08-15 19:24 | DI.US.S_ITS ---
PROCEDURE: US PELVIC COMPLETE INDICATIONS: PAIN 12 HRS POST IUD PLACEMENT TECHNIQUE: Real-time scanning was performed of the pelvic organs, with image documentation. Additional endovaginal scanning was necessary due to incomplete visualization of the adnexal and endometrial structures by transabdominal scanning. COMPARISON: [facility], US, US PELVIC COMPLETE, 11/09/2022, 22:01. [facility], CT, CT ABDOMEN PELVIS W CON, 02/06/2023, 21:51. FINDINGS: Uterus: Uterus is anteverted and normal in size at 6.2 x 4.5 x 3.6 cm. The myometrium is homogeneous. The endometrium measures 7 mm combined thickness. IUD is centered in the endometrial cavity. No definite fibroids. Ovaries: The right ovary measures 2.9 x 2.3 x 1.6 cm, with a calculated ovarian volume of 6 cc. The left ovary measures 2.7 x 2.4 x 2.2 cm, with a calculated ovarian volume of 7 cc. The ovaries have a normal sonographic appearance. Greater than 12 follicles can be seen in each ovary. No adnexal masses are seen. Other: No pathologic free abdominal or pelvic fluid. IMPRESSION: 1. IUD is centered in the endometrial cavity. 2. No significant ovarian cysts. Greater than 12 ovarian follicles bilaterally. This could be seen in the setting of PCOS. 3. No free fluid. We strive to produce accurate, complete, and clear reports of imaging services. To assist us in improving patient care, this report was composed using standard report templates and voice recognition software. Therefore, it may contain abnormal punctuation, insertions and/or omissions. Occasional wrong-word or sound-alike substitutions may occur. Though we review the report and make efforts to correct it, we do recommend that the report be read carefully in proper context to recognize any text inaccuracies. Dictated by: Michele Lam M.D. on 08/15/2023 at 21:07 Approved by: Michele Lam M.D. on 08/15/2023 at 21:10
[2023-08-15 19:47] LABS: Add Manual Diff / Slide Review NO; Basophils Absolute Auto 100 /uL (0-100); Basophils Percent Auto 0.9 % (0-2); Eosinophils Absolute Auto 200 /uL (0-450); Eosinophils Percent Auto 1.7 % (2-4); Hematocrit 38.9 % (36-46); Hemoglobin 13.3 g/dL (12.0-16.0); Lymphocytes Absolute Auto 3200 /uL (1100-4500); Lymphocytes Percent Auto 29.7 % (25-40); Mean Corpuscular HGB Conc 34.1 % (30-36); Mean Corpuscular Hemoglobin 27.7 PG (26-34); Mean Corpuscular Volume 81.4 fL (80-100); Monocytes Absolute Auto 500 /uL (0-900); Monocytes Percent Auto 4.9 % (3-14); Neutrophils Absolute Auto 6700 /uL (1500-7000); Neutrophils Percent Auto 62.8 % (50-75); Platelet Count 381 X10^3/uL (150-400); Red Blood Cell Count 4.78 X10^6/uL (4.0-5.2); White Blood Cell Count 10.7 X10^3/uL (4.5-11.0)
[2023-08-15 21:00] VITALS: BP 176/95; PULSE 82; RESP 18; O2SAT 100
[2023-08-15 22:38] VITALS: BP 155/78; PULSE 77; RESP 18; TEMP 36.8; O2SAT 100
== END 2023-08-15 22:38 | disposition home or self-care (01) ==
PROVIDERS: Emergency Provider Family Medicine Addiction Medicine; PCP Family Medicine
DX: R10.2 Pelvic and perineal pain (principal); N93.9 Abnormal uterine and vaginal bleeding, unspecified
CPT/HCPCS: 76830; 76856; 85025; 99281; 99282

== ENCOUNTER → 2024-01-03 18:49 | Outpatient (CLI) | payer OTHER, SELFPAY ==
--- NOTE | 2024-01-03 18:51 | DI.MRI.S_ITS ---
PROCEDURE: MR KNEE LT WO CON INDICATIONS: Recurrent subluxation of patella left knee TECHNIQUE: Noncontrast sagittal PD fast spin echo and T2 fast spin echo with fat saturation, sagittal 3-D FLASH with fat saturation; coronal T1 spin echo and PD fast spin echo with fat saturation, and axial PD fast spin echo with fat saturation through the knee. COMPARISON: [facility], CR, XR KNEE LT 3V, 05/03/2022, 17:12. [facility], CR, XR KNEE LT 3V, 05/03/2022, 20:10. [facility], MR, MR KNEE LT WO CON, 05/16/2022, 19:22. [facility], CR, XR KNEE 4+ VIEWS LEFT, 12/13/2023, 12:11. FINDINGS: Image quality: Excellent. Menisci: The medial and lateral menisci demonstrate normal morphology and internal signal. The meniscal root ligaments appear intact. Cruciate ligaments: The anterior and posterior cruciate ligaments appear intact. Medial structures: The medial collateral ligament appears intact. The posterior oblique ligament, semimembranosus tendon insertions, oblique popliteal ligament, and meniscocapsular junction appear intact. Visualized portions of the pes anserinus tendons appear normal. No abnormal bursal fluid. Lateral structures: The lateral collateral ligament, long and short heads of the biceps femoris tendon appear intact. The popliteus tendon appears normal; the popliteofibular ligament appears intact. The posterosuperior and anteroinferior popliteomeniscal fascicles appear intact. The arcuate and fabellofibular ligaments appear intact, on either side of the lateral inferior geniculate artery. Iliotibial band appears normal. Anterior structures: Insall-Salvati index TL/PL = 1.26. There is lateral tilt of patella. The quadriceps and patellar tendons appear intact. Patellar alignment is normal. No femoral trochlear dysplasia or ventral trochlear prominence. No edema in the infrapatellar fat pad. Bones and cartilage: There is cortical irregularity and subchondral edema in the medial aspect of patella compatible with remote injury. There is cartilage defect in the medial facet medial inferior aspect of the lateral facet of patella compatible with remote osteochondral injury. No displaced fractures. The cartilage of the medial and lateral femorotibial compartments, as well as the patellofemoral compartment, appears normal in thickness. Joint space: There is small knee joint effusion. No Sheffield's cyst. Normal appearing synovial plicae are incidentally noted. There is a 2 x 10 x 11 mm intra-articular body in the anterior aspect of the intercondylar notch ingesting follow of the distal ACL insertion to tibia. IMPRESSION: 1. Sequelae of remote injury to the medial aspect of patella related patellar dislocation. There is lateral tilt of patella. 2. A 2 x 10 x 11 mm intra-articular body in the anterior aspect of the intercondylar notch. 3. Small knee joint effusion. Dictated by: Caitlin Tucker M.D. on 01/04/2024 at 9:11 Approved by: Caitlin Tucker M.D. on 01/04/2024 at 9:54
== END ==
LOC: MRI 18:50
PROVIDERS: PCP Family Medicine; Referring Provider Orthopaedic Surgery; Visit Provider Orthopaedic Surgery
DX: M22.12 Recurrent subluxation of patella, left knee (principal); M23.42 Loose body in knee, left knee; M25.462 Effusion, left knee
CPT/HCPCS: 73721

== ENCOUNTER → 2024-10-22 16:24 | Outpatient (CLI) | payer OTHER, SELFPAY ==
--- NOTE | 2024-10-22 16:27 | DI.RAD.S_ITS ---
PROCEDURE: XR CHEST 2V INDICATIONS: ACUTE COUGH/CHEST PAIN TECHNIQUE: 2 views of the chest were acquired. COMPARISON: None. FINDINGS: Surgical changes and devices: None. Lungs and pleura: Lungs are clear. No pleural effusions or pneumothorax. Mediastinum: Mediastinal contours are normal. Heart size is normal. Bones and chest wall: No suspicious bony abnormalities. Soft tissues appear unremarkable. IMPRESSION: No acute pulmonary process. Dictated by: Katia Epstein M.D. on 10/22/2024 at 21:32 Approved by: Katia Epstein M.D. on 10/22/2024 at 21:32
== END ==
LOC: RAD 16:25
PROVIDERS: PCP Family Medicine; Referring Provider Family Medicine; Visit Provider Family Medicine
DX: R05.1 Acute cough (principal)
CPT/HCPCS: 71046

== ENCOUNTER → 2024-12-30 12:44 | Outpatient (CLI) | payer OTHER, SELFPAY | LOC: LAB 12:44 | PROVIDERS: PCP Family Medicine; Visit Provider Nurse Practitioner Family | DX: R30.0 Dysuria (principal) | CPT/HCPCS: 87077; 87086; 87147 ==

== ENCOUNTER → 2025-02-04 16:40 | Outpatient (CLI) | payer OTHER, SELFPAY | PROVIDERS: PCP Family Medicine; Visit Provider Chiropractor | DX: R35.0 Frequency of micturition (principal) | CPT/HCPCS: 87086 ==